=== PATIENT | female | born 1970 | race Caucasian/White ===

== ENCOUNTER 2017-05-16 09:19 | Emergency (ER) | payer SELFPAY ==
[~2017-05-16] VITALS: Ht 154.9 cm; Wt 81.2 kg
[2017-05-16 12:10] VITALS: BP 110/66
== END 2017-05-16 12:10 | disposition home or self-care (01) ==
LOC: ED 09:19
DX: S60.211A Contusion of right wrist, initial encounter (principal); M54.5 Low back pain; M54.2 Cervicalgia; E11.9 Type 2 diabetes mellitus without complications; Z79.4 Long term (current) use of insulin; V43.92XA Unspecified car occupant injured in collision with other type car in traffic accident, initial encounter; Y93.89 Activity, other specified; Y99.8 Other external cause status; Y92.89 Other specified places as the place of occurrence of the external cause
CPT/HCPCS: A4570; J1885

== ENCOUNTER 2018-10-02 19:28 | Emergency (ER) | payer BC ==
[~2018-10-02] VITALS: Ht 154.9 cm; Wt 77.6 kg
[2018-10-02 19:52] VITALS: Ht 154.9 cm; Wt 77.6 kg
[2018-10-02 21:20] LABS: BASOPHIL % 0.5 % (0-2); PLATELET COUNT 305 x10^3mcL (130-400); RED CELL DISTRIBUTION WIDTH 13.9 % (11.5-14.5)
[2018-10-02 21:35] LABS: CALCIUM 9.2 mg/dL (8.5-10.1); CARBON DIOXIDE 29.3 mmol/L (21-32); CHLORIDE SERUM 105 mmol/L (98-107); CREATININE SERUM 0.6 mg/dL (0.6-1.0); GFR1 > 60 mL/min; GLUCOSE SERUM 131 mg/dL (74-106); POTASSIUM SERUM 4.6 mmol/L (3.5-5.1); SODIUM SERUM 140 mmol/L (136-145)
[2018-10-02 21:42] LABS: ALKALINE PHOSPHATASE 90 U/L (46-116); ALT/SGPT 30 U/L (14-59); AST/SGOT 15 U/L (15-37); BILIRUBIN TOTAL 0.2 mg/dL (0.20-1.00); TOTAL PROTEIN, SERUM 7.9 g/dL (6.4-8.2)
[2018-10-02 21:48] LABS: FREE T4 0.94 ng/dL (0.76-1.46); FREE THYROXINE INDEX 2.8 ug/dL (1.4-4.5); T4(THYROXINE) 8.6 ug/dL (4.7-13.3)
[2018-10-02 21:56] LABS: T3 TOTAL 1.18 ng/mL
[2018-10-02 23:26] VITALS: BP 119/73
== END 2018-10-02 23:26 | disposition home or self-care (01) ==
LOC: ED 19:28
PROVIDERS: Emergency Medicine
DX: R22.1 Localized swelling, mass and lump, neck (principal); Z98.51 Tubal ligation status; E11.9 Type 2 diabetes mellitus without complications; Z98.890 Other specified postprocedural states; Z86.19 Personal history of other infectious and parasitic diseases
CPT/HCPCS: 36415; 84439; Q9967